=== PATIENT | male | born 1990 | race African-American/Black ===

== ENCOUNTER 2024-05-25 20:55 | Emergency (ER) | payer OTHER, SELFPAY ==
[2024-05-25] MEDS ORDERED: Ketorolac Tromethamine 30 MG (1 mL) VIAL ONE (21:25)
[2024-05-25] MEDS ORDERED: predniSONE 20 MG TAB ONE (21:25)
== END 2024-05-25 23:33 | disposition home or self-care (01) ==
LOC: BURERS 20:55
DX: R20.0 Anesthesia of skin (principal); R20.2 Paresthesia of skin; R29.700 NIHSS score 0; F17.210 Nicotine dependence, cigarettes, uncomplicated
CPT/HCPCS: 96372; 99283; J1885; J7512